=== PATIENT | female | born 1965 ===

== ENCOUNTER 2020-12-03 20:47 | Inpatient (IN) | payer OTHER ==
[2020-12-03 21:35] LABS: Basophils % (A) 0 %; Eosinophils # (A) 0.2 k/uL (0-0.7); Eosinophils % (A) 2 %; HGB 14.8 gm/dL (11.4-16.0); Lymphocytes # (A) 2.5 k/uL (1.0-4.8); Lymphocytes % (A) 24 %; MCH 28.7 pg (25.0-35.0); MCHC 33.5 g/dL (31.0-37.0); MCV 85.5 fL (80.0-100.0); Mean Platelet Volume 6.9; Monocytes # (A) 0.6 k/uL (0-1.0); Monocytes % (A) 5 %; Neutrophils % (A) 68 %; Platelet Count 310 k/uL (150-450); RBC 5.15 m/uL (3.80-5.40); RDW 12.7 % (11.5-15.5); WBC 10.3 k/uL (3.8-10.6)
[2020-12-03 21:43] LABS: ALT 35 U/L (4-34); AST 30 U/L (14-36); African American GFR (CKD) >90 (>60 ml/min/1.73 sqM); Albumin 4.5 g/dL (3.5-5.0); Alkaline Phosphatase 94 U/L (38-126); Anion Gap 11 mmol/L; Blood Urea Nitrogen 14 mg/dL (7-17); Calcium 10.6 mg/dL (8.4-10.2); Carbon Dioxide 26 mmol/L (22-30); Chloride 103 mmol/L (98-107); Glucose 176 mg/dL (74-99); Lipase 155 U/L (23-300); Non-African American GFR(CKD) >90 (>60 ml/min/1.73 sqM); Sodium 140 mmol/L (137-145); Total Bilirubin 0.2 mg/dL (0.2-1.3); Total Protein 7.4 g/dL (6.3-8.2)
[2020-12-03 21:52] LABS: D-Dimer <0.17 mg/L FEU (<0.60); Partial Thromboplastin Time 26.1 sec (22.0-30.0); Prothrombin Time 10.5 sec (9.0-12.0)
--- NOTE | 2020-12-03 21:59 | XR ---
EXAMINATION TYPE: XR chest 2V DATE OF EXAM: 12/03/2020 COMPARISON: NONE HISTORY: Chest pain TECHNIQUE: 2 views FINDINGS: Heart and mediastinum are normal. Lungs are clear. Diaphragm is normal. Bony thorax appears normal. There are chest leads. IMPRESSION: Normal chest. Normal heart.
[2020-12-03 22:09] LABS: Potassium 4.4 mmol/L (3.5-5.1)
[2020-12-03] MEDS ORDERED: HEPARIN SODIUM 1,000 UN/ML (10ML VL) IV PRN (22:33)
[2020-12-03] MEDS ORDERED: HEPARIN SODIUM 1,000 UN/ML (10ML VL) IV ONE (22:33)
[2020-12-03] MEDS ORDERED: NALOXONE 0.4 MG/ML 1 ML VIAL IV PRN (22:34)
[2020-12-03] MEDS ORDERED: ASPIRIN 81 MG PO STA (22:35)
[2020-12-03] MEDS ORDERED: LABETALOL 5 MG/ML VIAL MDV IVP STA (22:36)
[2020-12-03] MEDS ORDERED: HEPARIN SOD,PORK IN 0.45% NACL 25,000 UNIT in 0.45% NACL 1 250ML.BAG IV SCH (22:45)
--- NOTE | 2020-12-03 22:53 | ED ---
Chest Pain HPI - General Chief Complaint: Chest Pain Stated Complaint: Chest Tightness, Back Pain Source: patient Mode of arrival: ambulatory Limitations: no limitations - History of Present Illness Initial Comments: 55-year-old female with no past nuchal history of presents emergency room with reported chest pain. States that she has had chest pain/pressure for the past 3 days. It has been constant. Denies any provocative factors. Does have associated shortness of breath. States that she has had some radiating pain to her back. No history of DVT or PE. No lower trauma swelling. No calf cramping. Denies history of cardiac disease. States she's never had a cardiac evaluation. She does have multiple siblings that have had significant heart problems. States she has not seen a doctor in some time. She recently followed up with her doctor and was told that she had high blood pressure. He was started on blood pressure medications and was supposed to follow-up with her doctor in a couple weeks. She denies fevers, chills or cough. No ripping or tearing sensation to her back. 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 ROS Other: All systems not noted in ROS Statement are negative. EKG Findings - EKG Comments: EKG Findings:: EKG demonstrates sinus tachycardia with a ventricular rate of 108. OK interval 122. QRS 80. QTC 434. No acute ST segment elevations or depressions concerning for ischemic changes or infarction Past Medical History Past Medical History: No Reported History History of Any Multi-Drug Resistant Organisms: None Reported Past Surgical History: Section Past Psychological History: No Psychological Hx Reported Smoking Status: Never smoker Past Alcohol Use History: None Reported Past Drug Use History: None Reported General Exam Limitations: no limitations Course Vital Signs 12/03/20 12/03/20 12/03/20 21:20 22:27 23:03 Temperature 98.0 F Pulse Rate 108 H 93 Respiratory 18 18 Rate Blood Pressure 160/88 192/107 137/79 O2 Sat by Pulse 96 98 Oximetry Chest Pain MDM - [facility] Upon arrival patient is placed in room 17. A thorough history and physical exam was performed. Patient found to be markedly retentive and tachycardic. 12-lead EKG was performed. Patient placed on continuous pulse ox and cardiac monitoring. Laboratory studies are conducted in the patient for chest x-ray. Laboratory studies are reviewed. D-dimer negative however the troponin is 0.079. Chest x-ray demonstrates no acute process. Patient was given an aspirin. Also started on heparin as she has no contraindications. Did highly stressed admission for cardiology consultation for which the patient did agree to. I spoke with who agreed with the patient. We will trend the patient's troponins. Cardiology is placed on consult and an echo was ordered. I did order 20 mg of labetalol for the patient's blood pressure. She remained in stable condition awaiting a bed on the floor Disposition Clinical Impression: Chest pain, NSTEMI (non-ST elevation myocardial infarction), Hypertensive emergency Disposition: ADMITTED IP TO THIS HOSP Condition: Serious Is patient prescribed a controlled substance at d/c from ED?: No Decision to Admit Reason: Admit from EC Decision Date: 12/03/20 Decision Time: 22:54
[2020-12-03] MEDS ORDERED: MORPHINE SULFATE 2 MG/ML SYRINGE IVP PRN (23:58)
[2020-12-03] MEDS ORDERED: NITROGLYCERIN SL TABS 0.4 MG TAB SUBLINGUAL PRN (23:59)
[2020-12-04] MEDS: METOPROLOL TARTRATE 25 MG TAB PO SCH ×3 (00:15→21:26)
[2020-12-04] MEDS: NITROGLYCERIN OINT 1 INCH/GM PACKET TOPICAL SCH ×2 (00:15→08:32)
[2020-12-04 05:54] LABS: Basophils % (A) 0 %; Eosinophils # (A) 0.1 k/uL (0-0.7); Eosinophils % (A) 1 %; HCT 41.5 % (34.0-46.0); Lymphocytes # (A) 2.8 k/uL (1.0-4.8); Lymphocytes % (A) 34 %; MCH 29.1 pg (25.0-35.0); MCHC 33.7 g/dL (31.0-37.0); MCV 86.4 fL (80.0-100.0); Mean Platelet Volume 7.2; Monocytes # (A) 0.4 k/uL (0-1.0); Monocytes % (A) 5 %; Neutrophils # (A) 4.8 k/uL (1.3-7.7); Neutrophils % (A) 58 %; Platelet Count 306 k/uL (150-450); RDW 12.7 % (11.5-15.5); WBC 8.2 k/uL (3.8-10.6)
[2020-12-04 05:59] LABS: Partial Thromboplastin Time 37.6 sec (22.0-30.0); Prothrombin Time 10.6 sec (9.0-12.0)
[2020-12-04 06:09] LABS: African American GFR (CKD) >90 (>60 ml/min/1.73 sqM); Anion Gap 6 mmol/L; Blood Urea Nitrogen 12 mg/dL (7-17); Calcium 10.1 mg/dL (8.4-10.2); Carbon Dioxide 27 mmol/L (22-30); Chloride 107 mmol/L (98-107); Glucose 112 mg/dL (74-99); Non-African American GFR(CKD) >90 (>60 ml/min/1.73 sqM); Potassium 4.3 mmol/L (3.5-5.1); Sodium 140 mmol/L (137-145)
[2020-12-04] MEDS ORDERED: HEPARIN SODIUM,PORCINE 10,000 UNIT in SODIUM CHLORIDE 0.9% 1,000 ML IRRIGATION PRN (07:00)
[2020-12-04] MEDS ORDERED: HEPARIN SODIUM,PORCINE 2,500 UNIT in SODIUM CHLORIDE 0.9% 250 ML IRRIGATION PRN (07:00)
[2020-12-04] MEDS ORDERED: ACETAMINOPHEN TAB 325 MG TAB PO PRN (08:38)
[2020-12-04] MEDS ORDERED: ASPIRIN 325 MG TAB PO SCH (09:00)
[2020-12-04] MEDS ORDERED: NITROGLYCERIN SL TABS 0.4 MG TAB SUBLINGUAL PRN ×2 (09:45→12:46)
[2020-12-04] MEDS ORDERED: ASPIRIN 325 MG TAB PO STA (09:45)
[2020-12-04] MEDS ORDERED: ALPRAZolam 0.25 MG TAB PO PRN (09:45)
[2020-12-04] MEDS ORDERED: ALPRAZolam 0.5 MG TAB PO PRN (09:45)
[2020-12-04] MEDS ORDERED: SODIUM CHLORIDE 0.9% 1,000 ML in EMPTY BAG 1 BAG IV ONE (09:45)
[2020-12-04] MEDS ORDERED: ATORVASTATIN 80 MG TAB PO STA (09:45)
--- NOTE | 2020-12-04 10:16 | P.CRDCN ---
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 She was recently noted to have elevated blood pressure was planning for follow-up next week if her primary care physician at which time antihypertensives for likely to be initiated. She has no significant past medical history but does not seem to follow regularly with her physician. She is a nonsmoker and has a family history of CAD with 4 siblings passing from [facility] in their early to mid 60s. She lives in [place] and was traveling with her to their house in [place] when she developed pressure across her chest and weakness in her arms. She is also been complaining of significant fatigue with rapid heartbeat and dyspnea on exertion. She is usually quite active this time year working outside in her yard and has not been able to do so due to her fatigue and activity intolerance. She's also been complaining of some dizziness on and off for the last month. Upon presentation EKG showed sinus tachycardia with no changes significant for ischemia. Laboratory evaluation normal CBC negative d-dimer, potassium 4.4, BUN 14 and creatinine 0.6. Troponins were elevated at 0.079, 0.160 and 0.346. She has been chest pain-free since the initiation of Nitropaste. She is currently on IV heparin and has been initiated on aspirin and beta aries. Past Medical History Past Medical History: No Reported History History of Any Multi-Drug Resistant Organisms: None Reported Past Surgical History: Section Past Anesthesia/Blood Transfusion Reactions: No Reported Reaction Past Psychological History: No Psychological Hx Reported Smoking Status: Never smoker Past Alcohol Use History: None Reported Past Drug Use History: None Reported - Past Family History Father Family Medical History: Coronary Artery Disease (CAD) Mother Family Medical History: Coronary Artery Disease (CAD) Brother(s) Family Medical History: Coronary Artery Disease (CAD) Additional Family Medical History / Comment(s): 4 brothers who have all passed from heart disease Medications and Allergies Home Medications Medication Instructions Recorded Confirmed Type No Known Home Medications 12/03/20 12/03/20 History Allergies Allergy/AdvReac Type Severity Reaction Status Date / Time No Known Allergies Allergy Verified 12/03/20 21:41 Physical Exam Vitals: Vital Signs Temp Pulse Pulse Resp BP BP Pulse Ox 12/04/20 08:20 98.5 F 74 16 133/80 97 12/04/20 04:00 98.4 F 70 18 120/74 97 12/04/20 02:00 91 18 12/03/20 23:30 18 12/03/20 23:20 98.1 F 91 18 169/78 95 12/03/20 23:03 93 18 137/79 98 12/03/20 22:27 192/107 12/03/20 21:20 98.0 F 108 H 18 160/88 96 Intake and Output 12/03/20 12/04/20 12/04/20 22:59 06:59 14:59 Intake Total 67.084 0 Output Total 650 Balance -582.916 0 Intake: Intake, IV Titration 67.084 Amount Heparin Sod,Pork in 0.45% 67.084 NaCl 25,000 unit In 0.45 % NaCl 1 250ml.bag @ 12 UNITS/KG/HR 9.253 mls/hr IV .Q24H [facility] Rx#: [id number] Oral 0 Output: Urine 650 Other: Voiding Method Toilet Weight 77.111 kg 80.5 kg PHYSICAL EXAMINATION: This is a 55-year-old female in no apparent distress at the time of my examination. VITAL SIGNS: Blood pressure 133/80, heart rate 74, respirations 16, temp 98.5F. Patient is 97 % on room air. HEENT: Head is atraumatic, normocephalic. Pupils are equal, round. Sclerae anicteric. Conjunctivae are clear. Mucous membranes of the mouth are moist. Neck is supple. There is no elevated jugular venous pressure. No carotid bruit is heard. CHEST EXAMINATION: Clear to auscultation bilaterally. No wheezes rales or rhonchi. Respirations even and nonlabored. HEART EXAMINATION: Heart regular, positive S1 and S2. No S3. No S4. No clicks, rubs or murmurs. ABDOMEN: Soft, nontender. Bowel sounds are heard. No organomegaly noted. EXTREMITIES: 2+ peripheral pulses with no evidence of peripheral edema and no calf tenderness noted. NEUROLOGIC EXAMINATION: Patient is awake, alert and oriented x3. Results 12/04/20 04:48 12/04/20 04:48 Cardiac Enzymes 12/03/20 12/03/20 12/04/20 Range/Units 21:23 21:23 00:12 AST 30 (14-36) U/L Troponin I 0.079 H* 0.160 H* (0.000-0.034) ng/mL 12/04/20 Range/Units 03:27 AST (14-36) U/L Troponin I 0.346 H* (0.000-0.034) ng/mL Coagulation 12/03/20 12/04/20 Range/Units 21:23 04:48 PT 10.5 10.6 (9.0-12.0) sec APTT 26.1 37.6 H (22.0-30.0) sec CBC 12/03/20 12/04/20 Range/Units 21:23 04:48 WBC 10.3 8.2 (3.8-10.6) k/uL RBC 5.15 4.80 (3.80-5.40) m/uL Hgb 14.8 14.0 (11.4-16.0) gm/dL Hct 44.0 41.5 (34.0-46.0) % Plt Count 310 306 (150-450) k/uL Comprehensive Metabolic Panel 12/03/20 12/04/20 Range/Units 21:23 04:48 Sodium 140 140 (137-145) mmol/L Potassium 4.4 4.3 (3.5-5.1) mmol/L Chloride 103 107 (98-107) mmol/L Carbon Dioxide 26 27 (22-30) mmol/L BUN 14 12 (7-17) mg/dL Creatinine 0.60 0.57 (0.52-1.04) mg/dL Glucose 176 H 112 H (74-99) mg/dL Calcium 10.6 H 10.1 (8.4-10.2) mg/dL AST 30 (14-36) U/L ALT 35 H (4-34) U/L Alkaline Phosphatase 94 (38-126) U/L Total Protein 7.4 (6.3-8.2) g/dL Albumin 4.5 (3.5-5.0) g/dL Current Medications Generic Name Dose Route Start Last Admin Trade Name Freq PRN Reason Stop Dose Admin Acetaminophen 650 mg 12/04/20 08:38 12/04/20 08:45 Acetaminophen Tab 325 Mg Tab PO 650 mg Q6HR PRN Administration Fever and/ or Pain Alprazolam 0.25 mg 12/04/20 09:45 Alprazolam 0.25 Mg Tab PO Q6HR PRN Mild Anxiety Alprazolam 0.5 mg 12/04/20 09:45 Alprazolam 0.5 Mg Tab PO Q6HR PRN Moderate Anxiety Aspirin 325 mg 12/04/20 09:00 12/04/20 08:32 Aspirin 325 Mg Tab PO 325 mg DAILY PEDRO Administration Heparin Sodium (Porcine) 0 unit 12/03/20 22:33 Heparin Sodium 1,000 Un/Ml (10ml Vl) IV PER PROTOCOL PRN Low PTT Protocol Heparin Sodium/Sodium Chloride 250 mls @ 9.253 mls/hr 12/03/20 22:45 12/04/20 06:13 25,000 unit/ Sodium Chloride IV 14 units/kg/hr .Q24H PEDRO 10.796 mls/hr Titration Protocol 12 UNITS/KG/HR Heparin Sodium (Porcine) 10, 1,001 mls @ 999 mls/hr 12/04/20 07:00 000 unit/ Sodium Chloride IRRIGATION 12/04/20 23:00 ONCE PRN INTRA-OP Heparin Sodium (Porcine) 2,500 250.5 mls @ 250 mls/hr 12/04/20 07:00 unit/ Sodium Chloride IRRIGATION 12/04/20 23:00 ONCE PRN INTRA-OP Sodium Chloride 1,000 ml/ IV 1,000 mls @ 80.5 mls/hr 12/04/20 09:45 Solution IV 12/04/20 22:10 .[id number] ONE 1 ML/KG/HR Metoprolol Tartrate 25 mg 12/03/20 23:45 12/04/20 08:32 Metoprolol Tartrate 25 Mg Tab PO 25 mg BID PEDRO Administration Morphine Sulfate 2 mg 12/03/20 23:58 Morphine Sulfate 2 Mg/Ml Syringe IVP Q4H PRN Severe Pain Naloxone HCl 0.2 mg 12/03/20 22:34 Naloxone 0.4 Mg/Ml 1 Ml Vial IV Q2M PRN Opioid Reversal Nitroglycerin 1 inch 12/04/20 00:00 12/04/20 08:32 Nitroglycerin Oint 1 Inch/Gm Packet TOPICAL 1 inch Q8HR PEDRO Administration Nitroglycerin 0.4 mg 12/03/20 23:59 Nitroglycerin Sl Tabs 0.4 Mg Tab SUBLINGUAL Q5M PRN Chest Pain Nitroglycerin 0.4 mg 12/04/20 09:45 Nitroglycerin Sl Tabs 0.4 Mg Tab SUBLINGUAL Q5M PRN Chest Pain Intake and Output 12/03/20 12/04/20 12/04/20 22:59 06:59 14:59 Intake Total 67.084 0 Output Total 650 Balance -582.916 0 Intake: Intake, IV Titration 67.084 Amount Heparin Sod,Pork in 0.45% 67.084 NaCl 25,000 unit In 0.45 % NaCl 1 250ml.bag @ 12 UNITS/KG/HR 9.253 mls/hr IV .Q24H [facility] Rx#: [id number] Oral 0 Output: Urine 650 Other: Voiding Method Toilet Weight 77.111 kg 80.5 kg 12/04/20 04:48 12/04/20 04:48 Assessment and Plan Assessment: #1 non-ST elevation ID #2 hypertension #3 obesity #4 family history of CAD Plan: From associate genetics professor perspective we will check a lipid profile and add statin. We recommend the patient undergo cardiac catheterization. The risks, benefits and alternative therapies for the above-mentioned procedure and for both sedation/analgesia as well as necessary blood product administration, if indica bobby, have been discussed with the patient. The patient has indicated understanding and acceptance of the risks and procedures discussed. Questions have been answered appropriately and she is agreeable to move forward with the above stated procedure. Further recommendations to be made depending on findings. TEST LEAD APPLICATION TESTING note has been reviewed, I agree with a documented findings and plan of care. Patient was seen and examined.
[2020-12-04] MEDS ORDERED: LIDOCAINE 1% INJ 10MG/ML (20 ML MDV) ONE (11:15)
[2020-12-04] MEDS ORDERED: VERAPAMIL 2.5 MG/ML 2 ML AMP ONE (11:15)
[2020-12-04] MEDS ORDERED: IV FLUID CONTINUATION 950 ML IV ONE (11:15)
[2020-12-04] MEDS ORDERED: fentaNYL (PF) 50 MCG/ML 2 ML AMP ONE (11:16)
[2020-12-04] MEDS ORDERED: fentaNYL (PF) 50 MCG/ML 2 ML AMP IV ONE (11:36)
[2020-12-04] MEDS ORDERED: MIDAZOLAM 2 MG/2 ML VIAL IV ONE (11:39)
[2020-12-04] MEDS ORDERED: LIDOCAINE 1% INJ 10MG/ML (20 ML MDV) SQ ONE (11:39)
[2020-12-04] MEDS ORDERED: VERAPAMIL SYRINGE (5 MG/10 ML) INTRAARTER ONE (11:41)
[2020-12-04] MEDS ORDERED: HEPARIN SODIUM 1,000 UN/ML (10ML VL) ONE (11:41)
[2020-12-04] MEDS ORDERED: TICAGRELOR 90 MG TAB ONE (11:51)
[2020-12-04] MEDS ORDERED: TICAGRELOR 90 MG TAB PO ONE (11:51)
[2020-12-04] MEDS: NITROGLYCERIN 1000MCG/10ML SYRINGE INTRACORON ONE ×2 (12:03→12:17)
[2020-12-04] MEDS ORDERED: IOPAMIDOL-370 125ML BTL INJ ONE (12:03)
[2020-12-04] MEDS ORDERED: IOPAMIDOL-370 100ML BTL INJ ONE ×2 (12:10→12:21)
[2020-12-04] MEDS ORDERED: ONDANSETRON 4 MG/2 ML VIAL ONE (12:36)
[2020-12-04] MEDS ORDERED: ONDANSETRON 4 MG/2 ML VIAL IVP ONE (12:39)
[2020-12-04] MEDS ORDERED: ATROPINE SULFATE 0.1 MG/ML 10ML SYRINGE IV PRN (12:46)
[2020-12-04] MEDS ORDERED: ZOLPIDEM 5 MG TAB PO PRN (12:46)
[2020-12-04] MEDS ORDERED: RX INFO: IV CONTRAST WAS GIVEN 1 EACH MISC MISCELLANE PRN (12:46)
[2020-12-04] MEDS ORDERED: MAG HYDROX/AL HYDROX/SIMETH 30 ML CUP PO PRN (12:46)
[2020-12-04 13:00] LABS: Cholesterol 181 mg/dL (<200); HDL Cholesterol 37 mg/dL (40-60); LDL Cholesterol,Calculated 117 mg/dL (0-99); Triglycerides 137 mg/dL (<150)
[2020-12-04] MEDS ORDERED: SODIUM CHLORIDE 0.9% 1,000 ML IV SCH (13:00)
--- NOTE | 2020-12-04 13:11 | CC ---
CARDIAC CATHETERIZATION REPORT Mrs. Oquendo is a 55-year-old female who presented to the emergency room with symptoms of chest discomfort radiating to the arm bilaterally. She had mild troponin elevation but no significant EKG changes. In view of that, recommendation was made regarding cardiac catheterization. The procedure as well as the risks and the complications were discussed with the patient who is in full understanding and agreement. 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 Using Xylocaine anesthesia and Seldinger technique a 6-Iraqi sheath was introduced in the right radial artery. Selective right and left coronary angiography performed using 5-Iraqi 3.5 bend right and left Eric catheter. Multiple views of the coronary artery including hemiaxial views were obtained. Following that, angioplasty and stenting was performed. Following that, the guiding catheter introduced in the left ventricle and left ventricular end-diastolic pressure was calculated. Following that, catheter and sheath were removed. Hemostasis was obtained with deployment of a TR band. There was no immediate complication. Patient was returned to her room in stable condition. FINDINGS: LEFT MAIN: This is a large-sized vessel, bifurcating into left circumflex, left anterior descending artery, left main coronary artery has a 20% plaque distally. LEFT ANTERIOR DESCENDING CORONARY ARTERY: This is a large-sized vessel reaching to the apex with a wraparound apex segment giving rise to a moderately sized diagonal branch. In the proximal segment of the LAD, there is an aneurysmal formation. After the takeoff of the diagonal branch, there is a 95% stenosis. The rest of the vessel has no evidence of high-grade stenosis. LEFT CIRCUMFLEX: This is a large nondominant vessel giving rise to a large obtuse marginal branch. After the takeoff of the obtuse marginal branch, there is 99% stenosis. The vessel beyond that is smaller in caliber. RIGHT CORONARY ARTERY: This is a large dominant vessel bifurcating distally PDA posterolateral segment and branches. The proximal right coronary artery has a 50% to 60% plaque. The mid segment has a 20-30 percent plaque. The rest of the vessel has no high-grade stenosis. LEFT VENTRICULOGRAM: Left ventriculogram was not performed. HEMODYNAMICS: There was no gradient across the aortic valve. The left ventricular end-diastolic pressure was 10-14 mmHg. CONCLUSION: 1. 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 2. Moderate plaque in the proximal RCA with mild disease in the mid RCA. RECOMMENDATION: In view of the findings and anatomy, I recommend proceeding with angioplasty and stenting. The procedure as well as the risks and the complications were discussed with the patient who is in full understanding and agreement. MMHIGINIO / BLASN: [id number] /
--- NOTE | 2020-12-04 13:11 | PTCA ---
PERCUTANEOUSTRANS CORORONARY ANGIOGRAPHY Mrs. Oquendo is a 55-year-old female with no prior documented history of coronary artery disease who presented with evidence of non ST-segment elevation myocardial infarction. She underwent cardiac catheterization, was found to have critical stenosis involving the mid LAD and mid left circumflex and moderate disease in the proximal right coronary artery. In view of that, recommendation made regarding angioplasty and stenting. The procedure as well as the risks and the complications were discussed with the patient who is in full understanding and agreement. PROCEDURE DETAILS: A 6-Yemeni FL 3.5 guiding catheter was introduced into the system. After cannulating the left main, a 0.014 balanced medium weight J-wire was advanced across the lesion of the LAD and positioned distally. Subsequently 2.5 x 12 mm NC Trek balloon was advanced and one inflation at 10 atmospheres was done. Following that, the balloon was removed and a 2.5 x 18 mm Xience Rosa stent was deployed. It was dilated at 16 atmospheres. Following that, and after appropriate wait, the balloon and the guidewire were withdrawn back in the guiding catheter. Images were obtained and repeated. Those images reveal stable successful stenting. At that point, the wire was introduced into the distal left circumflex and a 2.0 x 12 mm mini Trek balloon was advanced and 2 inflations at a maximum of 8 atmospheres were done. Following that, the balloon was removed and a 2.0 x 15 mm lori resolute stent was advanced, deployed and post dilated at 16 atmospheres. After the last inflation, after appropriate wait, the balloon and the guidewire were withdrawn back in the guiding catheter. Images were obtained and repeated. Those images reveal stable successful stenting. At that point, the guiding catheter, the balloon and the guidewire were removed. The sheath was removed. Hemostasis was obtained with deployment of a TR band. There was no immediate complication. Patient is returned to his room in stable condition. Of note, the patient had chest discomfort and EKG changes that resolved at the end of the procedure. She received a total of 6000 units intravenous heparin. Her ACT was followed. RESULTS: 1. Successful stenting of the mid LAD with reduction of stenosis from 95% to 0%. 2. Successful stenting of the mid left circumflex with reduction of stenosis from 99% to 0%. RECOMMENDATIONS: Patient will be continued on aspirin, Brilinta, beta aries, FIDEL inhibitors and statin. The importance of dual antiplatelet treatment were discussed with the patient and her family and they are in full understanding and agreement. Duration of sedation is 50 minutes. MMODL / IJN: [id number] /
--- NOTE | 2020-12-04 14:00 | ECHOF ---
Referral Reason:nstemi MEASUREMENTS -------- HEIGHT: 152.4 cm WEIGHT: 80.3 kg BP: 120/74 RVIDd: 2.9 cm (< 3.3) IVSd: 1.2 cm (0.6 - 1.1) LVIDd: 3.7 cm (3.9 - 5.3) LVPWd: 1.2 cm (0.6 - 1.1) IVSs: 1.4 cm LVIDs: 2.0 cm LVPWs: 1.7 cm LAESV Index (A-L): 16.67 ml/m Ao Diam: 2.3 cm (2.0 - 3.7) AV Cusp: 1.5 cm (1.5 - 2.6) LA Diam: 3.2 cm (2.7 - 3.8) MV EXCURSION: 12.842 mm (> 18.000) MV EF SLOPE: 96 mm/s (70 - 150) EPSS: 0.2 cm MV E Maico: 0.51 m/s MV DecT: 141 ms MV A Maico: 0.75 m/s MV E/A Ratio: 0.68 RAP: 5.00 mmHg RVSP: 27.74 mmHg FINDINGS -------- Sinus rhythm. This was a technically adequate study. The left ventricular size is normal. There is mild concentric left ventricular hypertrophy. Overa ll left ventricular systolic function is normal with, an EF between 55 - 60 %. The diastolic fillin g pattern is normal for the age of the patient 8.20. The right ventricle is normal in size. Normal LA size by volume 22+/-6 ml/m2. The right atrial size is normal. There is mild aortic valve sclerosis. There is no evidence of aortic regurgitation. Mild mitral annular calcification present. Mild mitral regurgitation is present. The tricuspid valve appears structurally normal. Mild tricuspid regurgitation present. Right vent ricular systolic pressure is normal at < 35 mmHg. Trace/mild (physiologic) pulmonic regurgitation. The aortic root size is normal. There is no pericardial effusion. CONCLUSIONS -------- 1. There is mild concentric left ventricular hypertrophy. 2. Overall left ventricular systolic function is normal with, an EF between 55 - 60 %. 3. Normal LA size by volume 22+/-6 ml/m2. 4. There is mild aortic valve sclerosis. 5. Mild mitral annular calcification present. 6. Mild mitral regurgitation is present. 7. Mild tricuspid regurgitation present. 8. Trace/mild (physiologic) pulmonic regurgitation. 9. There is no pericardial effusion. HEADING AND PRIMING OPERATOR: Fariba Byrne RDCS
[2020-12-04 15:15] VITALS: BMI 34.6
[2020-12-04] MEDS: ATORVASTATIN 80 MG TAB PO SCH (21:26)
[2020-12-04] MEDS: lisinopriL 5 MG TAB PO SCH (21:26)
[2020-12-04] MEDS: TICAGRELOR 90 MG TAB PO SCH (21:27)
--- NOTE | 2020-12-04 21:31 | P.HPIM ---
History of Present Illness H&P Date: 12/04/20 Chief Complaint: Chest pressure Patient is a 55-year-old female without significant past medical history presents to ER with complaints of chest pressure on and off for the past 1 week. Patient was seen by her primary care physician about 2 weeks ago and was found to have elevated blood pressure. Patient was recommended to follow-up again within a week to recheck her blood pressure in case needs to be started on antihypertensives. Patient also was not able to follow-up. Developed chest pressure and weakness in her arms. No associated nausea. No diaphoresis. Yisel ent states that she has been having exertional dyspnea and fatigue recently and dizziness on and off. No complaints of cough or sputum production. No fever no chills. No leg swelling. EKG showed sinus tachycardia Laboratory pressure WBC 10.3 hemoglobin 14.8 and platelets 310 D-dimer is less than 0.17, blood sugar 176 calcium 10.6 and ALT 35 and troponin 0 0.079, 0.160 and 0.346 LDL is 117 Lipase 135 and coronavirus PCR not detected. Review of Systems Constitutional: Patient denies any fever or chills . No generalized weakness or weight loss. Abdomen: Patient denied nausea vomiting and diarrhea and abdominal pain. Cardiovascular: Patient does complain of chest pressure associated shortness of breath. No leg swelling no palpitations.. Respiratory: patient denied any cough or sputum production. No shortness of breath Neurologic: Patient denied any numbness or tingling headache. Musculoskeletal: Patient denies any complaints of joint swelling or deformity. Skin: Negative Psychiatric: Negative Endocrine: No heat or cold intolerance. No recent weight gain. Genitourinary: No dysuria or hematuria. All other 14 point ROS negative except the above Past Medical History Past Medical History: No Reported History History of Any Multi-Drug Resistant Organisms: None Reported Past Surgical History: Section Past Anesthesia/Blood Transfusion Reactions: No Reported Reaction Past Psychological History: No Psychological Hx Reported Smoking Status: Never smoker Past Alcohol Use History: None Reported Past Drug Use History: None Reported - Past Family History Father Family Medical History: Coronary Artery Disease (CAD) Mother Family Medical History: Coronary Artery Disease (CAD) Brother(s) Family Medical History: Coronary Artery Disease (CAD) Additional Family Medical History / Comment(s): 4 brothers who have all passed from heart disease Medications and Allergies Home Medications Medication Instructions Recorded Confirmed Type No Known Home Medications 12/03/20 12/03/20 History Allergies Allergy/AdvReac Type Severity Reaction Status Date / Time No Known Allergies Allergy Verified 12/03/20 21:41 Physical Exam Vitals: Vital Signs Temp Pulse Pulse Resp BP BP Pulse Ox 12/04/20 08:20 98.5 F 74 16 133/80 97 12/04/20 04:00 98.4 F 70 18 120/74 97 12/04/20 02:00 91 18 12/03/20 23:30 18 12/03/20 23:20 98.1 F 91 18 169/78 95 12/03/20 23:03 93 18 137/79 98 12/03/20 22:27 192/107 12/03/20 21:20 98.0 F 108 H 18 160/88 96 Intake and Output 12/03/20 12/04/20 12/04/20 22:59 06:59 14:59 Intake Total 67.084 0 Output Total 650 Balance -582.916 0 Intake: Intake, IV Titration 67.084 Amount Heparin Sod,Pork in 0.45% 67.084 NaCl 25,000 unit In 0.45 % NaCl 1 250ml.bag @ 12 UNITS/KG/HR 9.253 mls/hr IV .Q24H [facility] Rx#: [id number] Oral 0 Output: Urine 650 Other: Voiding Method Toilet Weight 77.111 kg 80.5 kg PHYSICAL EXAMINATION: Patient is lying in the bed comfortably, no acute distress, awake alert and oriented.. HEENT: Normocephalic. Neck is supple. Pupils reactive. Nostrils clear. Oral cavity is moist. Ears reveal no drainage. Neck reveals no JVD, carotid bruits, or thyromegaly. CHEST EXAMINATION: Trachea is central. Symmetrical expansion. Lung simental clear to auscultation and percussion. CARDIAC: Normal S1, S2 with no gallops. No murmurs ABDOMEN: Soft. Bowel sounds normal. No organomegaly. No abdominal bruits. Extremities: reveal no edema. No clubbing or cyanosis Neurologically awake, alert, oriented x3 with well-coordinated movements. No focal deficits noted Skin: No rash or skin lesions. Psychiatric: Coperative. Nonsuicidal Musculoskeletal: No joint swelling or deformity. Normal range of motion. Results CBC & Chem 7: 04/17/21 04:48 12/04/20 04:48 Labs: Abnormal Lab Results - Last 24 Hours (Table) 12/03/20 12/03/20 12/04/20 Range/Units 21:23 21:23 00:12 APTT (22.0-30.0) sec Glucose 176 H (74-99) mg/dL Calcium 10.6 H (8.4-10.2) mg/dL ALT 35 H (4-34) U/L Troponin I 0.079 H* 0.160 H* (0.000-0.034) ng/mL 12/04/20 12/04/20 12/04/20 Range/Units 03:27 04:48 04:48 APTT 37.6 H (22.0-30.0) sec Glucose 112 H (74-99) mg/dL Calcium (8.4-10.2) mg/dL ALT (4-34) U/L Troponin I 0.346 H* (0.000-0.034) ng/mL Thrombosis Risk Factor Assmnt - DVT/VTE Prophylaxis DVT/VTE Prophylaxis: Pharmacologic Prophylaxis ordered - Choose All That Apply Each Factor Represents 1 point: Age 41-60 years Other Risk Factors: No Other congenital or acquired thrombophilia - If yes, enter type in comment: No Thrombosis Risk Factor Assessment Total Risk Factor Score: 1 Thrombosis Risk Factor Assessment Level: Low Risk Assessment and Plan Assessment: Acute non-ST elevated PA with elevated troponin level. Chest pressure on admission Hypertension newly diagnosed Hyperlipidemia with LDL 117 Obesity with BMI 34.7 Family history of coronary disease DVT prophylaxis with heparin subcu Plan: Patient was started on heparin drip and aspirin and statins were started. Patient underwent cardiac catheterization with stent placement. Continue with the Brilinta and metoprolol and lisinopril was added. Cardiology is on board. Recommendations based on clinical course. Time with Patient: Greater than 30
[2020-12-05] MEDS: lisinopriL 5 MG TAB PO SCH ×2 (08:03→20:04)
[2020-12-05] MEDS: TICAGRELOR 90 MG TAB PO SCH ×2 (08:03→20:04)
[2020-12-05] MEDS: ASPIRIN 81 MG PO SCH (08:03)
[2020-12-05] MEDS: METOPROLOL TARTRATE 25 MG TAB PO SCH (08:03)
[2020-12-05 09:40] LABS: African American GFR (CKD) >90 (>60 ml/min/1.73 sqM); Anion Gap 11 mmol/L; Blood Urea Nitrogen 12 mg/dL (7-17); Calcium 10.2 mg/dL (8.4-10.2); Carbon Dioxide 22 mmol/L (22-30); Chloride 104 mmol/L (98-107); Glucose 173 mg/dL (74-99); Non-African American GFR(CKD) >90 (>60 ml/min/1.73 sqM); Potassium 4.1 mmol/L (3.5-5.1); Sodium 137 mmol/L (137-145)
--- NOTE | 2020-12-05 09:54 | PN ---
PROGRESS NOTE Mrs. Oquendo is a 55-year-old female who presented with non-STEMI. Underwent cardiac catheterization and was found to have critical stenosis involving the mid LAD and mid left circumflex with moderate disease in the RCA. She underwent stenting of the LAD and left circumflex. She is doing well today. She has vague discomfort but no significant chest pain. She is in sinus mechanism. Her breathing is stable. She denies any dizziness or palpitation. There is no evidence of malignant arrhythmia. She continues on aspirin once a day, Lipitor 80 mg daily, Brilinta 90 mg twice a day, Zestril 5 mg twice a day, metoprolol tartrate 25 mg twice a day. PHYSICAL EXAMINATION: Blood pressure 122/80 with a heart rate in 90s. LUNGS: Clear. HEART: Regular rhythm S1, S2. No S3. No rub. ABDOMEN: Soft, nontender. EXTREMITIES: No edema. Right radial pulse intact. Echocardiogram performed yesterday revealed no segmental wall motion abnormality. Her EKG shows no acute changes. IMPRESSION: 1. Status post non-STEMI and stenting of the left anterior descending and the left circumflex. 2. History of hypertension. RECOMMENDATION: We will continue present therapy. Increase her level activity. If she remains stable I would expect she should be able to be discharged home tomorrow. MMODL / IJN: [id number] /
[2020-12-05] MEDS ORDERED: METOPROLOL TARTRATE 25 MG TAB PO STA (13:25)
[2020-12-05 14:00] LABS: Hemoglobin A1C 6.2 % (4.0-6.0)
[2020-12-05] MEDS: ATORVASTATIN 80 MG TAB PO SCH (20:04)
[2020-12-05] MEDS: METOPROLOL TARTRATE 50 MG TAB PO SCH (20:04)
[2020-12-05 20:19] LABS: Glucose,Whole Blood 116 mg/dL (75-99)
[2020-12-06 04:08] VITALS: RESP 16
[2020-12-06 06:26] LABS: Glucose,Whole Blood 110 mg/dL (75-99)
[2020-12-06] MEDS: METOPROLOL TARTRATE 50 MG TAB PO SCH (08:39)
[2020-12-06] MEDS: lisinopriL 5 MG TAB PO SCH (08:39)
[2020-12-06] MEDS: TICAGRELOR 90 MG TAB PO SCH (08:39)
[2020-12-06] MEDS: ASPIRIN 81 MG PO SCH (08:40)
[2020-12-06 09:06] LABS: Basophils % (A) 0 %; Eosinophils # (A) 0.1 k/uL (0-0.7); Eosinophils % (A) 2 %; HCT 46.6 % (34.0-46.0); HGB 15.2 gm/dL (11.4-16.0); Lymphocytes % (A) 23 %; MCH 28.8 pg (25.0-35.0); MCHC 32.5 g/dL (31.0-37.0); MCV 88.5 fL (80.0-100.0); Mean Platelet Volume 7.4; Monocytes # (A) 0.3 k/uL (0-1.0); Monocytes % (A) 4 %; Neutrophils # (A) 6.1 k/uL (1.3-7.7); Neutrophils % (A) 71 %; Platelet Count 294 k/uL (150-450); RBC 5.27 m/uL (3.80-5.40); RDW 13.1 % (11.5-15.5); WBC 8.6 k/uL (3.8-10.6)
[2020-12-06 10:18] LABS: African American GFR (CKD) >90 (>60 ml/min/1.73 sqM); Anion Gap 10 mmol/L; Blood Urea Nitrogen 16 mg/dL (7-17); Calcium 10.3 mg/dL (8.4-10.2); Carbon Dioxide 26 mmol/L (22-30); Chloride 103 mmol/L (98-107); Glucose 228 mg/dL (74-99); Non-African American GFR(CKD) >90 (>60 ml/min/1.73 sqM); Sodium 139 mmol/L (137-145)
[2020-12-06 10:30] LABS: Potassium 5.1 mmol/L (3.5-5.1)
[2020-12-06 11:51] LABS: Glucose,Whole Blood 102 mg/dL (75-99)
[2020-12-06] MEDS ORDERED: metFORMIN 500 MG TAB PO SCH (12:00)
--- NOTE | 2020-12-06 12:25 | P.PN ---
Subjective Progress Note Date: 12/06/20 HISTORY OF PRESENT ILLNESS: Patient is status post cardiac catheterization with Dr. Grande with PCI to the LAD and circumflex. Patient examined this morning at the bedside. Patient denies chest pain or pressure. She denies shortness of breath. Vital signs remain stable. Echocardiogram reveals ejection fraction 55-60%, mild mitral regurgitation, and mild tricuspid regurgitation. She is hoping to be discharged home today. PHYSICAL EXAM: VITAL SIGNS: Reviewed. GENERAL: Well-developed in no acute distress. NECK: Supple. No JVD or thyromegaly LUNGS: Respirations even and unlabored. Lungs essentially clear to auscultation bilaterally. HEART: Regular rate and rhythm. S1 and S2 heard. EXTREMITIES: Normal range of motion. No clubbing or cyanosis. Peripheral pulses intact. No lower extremity edema. Right radial cath site with pulse present. ASSESSMENT: Non-STEMI, s/p PCI to LAD and circumflex Hypertension Hyperlipidemia Obesity: BMI 33.8 Family history of coronary artery disease PLAN: Continue dual antiplatelet therapy with aspirin and Brilinta Continue atorvastatin, lisinopril, and metoprolol Patient is stable for discharge home today from a cardiac standpoint. Patient to follow up in the office with Dr. Grande. Nurse practitioner note has been reviewed by physician. Signing provider agrees with the documented findings, assessment, and plan of care. Objective - Vital Signs Vital signs: Vital Signs Temp 98.3 F 12/06/20 08:00 Pulse 80 12/06/20 08:00 Resp 16 12/06/20 08:00 BP 122/78 12/06/20 08:00 Pulse Ox 99 12/06/20 08:00 Intake & Output 12/05/20 12/06/20 12/06/20 18:59 06:59 18:59 Intake Total 818 240 240 Output Total 100 100 Balance 718 140 240 Weight 78.4 kg Intake: Oral 818 240 240 Output: Urine 100 100 Other: Voiding Method Toilet Toilet Toilet # Voids 4 4 - Labs CBC & Chem 7: 12/06/20 08:07 12/06/20 08:07 Labs: Abnormal Lab Results - Last 24 Hours (Table) 12/05/20 12/05/20 12/06/20 Range/Units 09:01 20:17 06:25 Hct (34.0-46.0) % Glucose (74-99) mg/dL POC Glucose (mg/dL) 116 H 110 H (75-99) mg/dL Hemoglobin A1c 6.2 H (4.0-6.0) % Calcium (8.4-10.2) mg/dL 12/06/20 12/06/20 12/06/20 Range/Units 08:07 08:07 11:46 Hct 46.6 H (34.0-46.0) % Glucose 228 H (74-99) mg/dL POC Glucose (mg/dL) 102 H (75-99) mg/dL Hemoglobin A1c (4.0-6.0) % Calcium 10.3 H (8.4-10.2) mg/dL
[2020-12-06 12:34] VITALS: BP 110/71; PULSE 82; TEMP 98
== END 2020-12-06 15:45 | disposition home or self-care (01) | DRG 247 ==
LOC: EC 20:47 → 3SCARD 22:34
PROVIDERS: ADMIT Internal Medicine; ATTEND Internal Medicine
PROC: 027135Z Dilation of Coronary Artery, Two Arteries with Two Drug-eluting Intraluminal Devices, Percutaneous Approach (ICD-10-PCS; principal; 2020-12-04 11:30)
PROC: B2111ZZ Fluoroscopy of Multiple Coronary Arteries using Low Osmolar Contrast (ICD-10-PCS; principal; 2020-12-04 11:30)
PROC: 4A023N7 Measurement of Cardiac Sampling and Pressure, Left Heart, Percutaneous Approach (ICD-10-PCS; principal; 2020-12-04 11:30)
DX: I21.4 Non-ST elevation (NSTEMI) myocardial infarction (principal); I16.1 Hypertensive emergency; I11.9 Hypertensive heart disease without heart failure; E66.9 Obesity, unspecified; Z20.822 Contact with and (suspected) exposure to COVID-19; Z68.34 Body mass index [BMI] 34.0-34.9, adult; E78.5 Hyperlipidemia, unspecified; I25.10 Atherosclerotic heart disease of native coronary artery without angina pectoris; I08.1 Rheumatic disorders of both mitral and tricuspid valves; M54.9 Dorsalgia, unspecified; Z98.891 History of uterine scar from previous surgery; Z82.49 Family history of ischemic heart disease and other diseases of the circulatory system
CPT/HCPCS: 36415; 71046; 80048; 80053; 80061; 83036; 83690; 83735; 84484; 85025; 85347; 85379; 85610; 85730; 87635; 93005; 93306; 93458; 99285